=== PATIENT | female | born 1980 | race Caucasian/White ===

== ENCOUNTER → 2016-06-13 | Outpatient (REF) | payer OTHER ==
[~2016-06-13] MED LIST: FERR325T; IBUP600T; KEFL500C; VICO5TAB
== END ==
LOC: M LAB REF 09:10
PROVIDERS: ATTEND Physician Assistant
DX: J02.9 Acute pharyngitis, unspecified (principal)

== ENCOUNTER → 2016-10-11 | Outpatient (REF) | payer OTHER ==
[2016-10-11 16:46] LABS: ALBUMIN 4.1 GM/DL (3.2-5.2); ALBUMIN/GLOBULIN RATIO 1.21 (1.00-1.93); ALKALINE PHOSPHATASE 40 U/L (45-117); ALT/SGPT 32 U/L (12-78); ANION GAP 9 MEQ/L (8-16); AST/SGOT 19 U/L (15-37); BILIRUBIN,TOTAL 0.9 MG/DL (0.2-1.0); BLOOD UREA NITROGEN 12 MG/DL (7-18); CALCIUM LEVEL 9.2 MG/DL (8.5-10.1); CARBON DIOXIDE LEVEL 26 MEQ/L (21-32); CHLORIDE LEVEL 104 MEQ/L (98-107); CHOLESTEROL LEVEL 186 MG/DL (<200); CREATININE FOR GFR 0.93 MG/DL (0.55-1.02); FREE T4 1.22 NG/DL (0.76-1.46); GLOMERULAR FILTRATION RATE > 60.0 (>60); GLUCOSE, FASTING 84 MG/DL (70-105); POTASSIUM SERUM 4.5 MEQ/L (3.5-5.1); SODIUM LEVEL 139 MEQ/L (136-145); TOTAL PROTEIN 7.5 GM/DL (6.4-8.2); TRIGLYCERIDES LEVEL 122 MG/DL (<150)
[2016-10-11 17:12] LABS: BASO % 0.5 % (0.0-1.0); EOS # 0.1 K/mm3 (0.0-0.50); EOS % 1.4 % (0.0-3.0); LARGE UNSTAINED CELL # 0.1 K/mm3 (0.0-0.4); LYMPH # 1.5 K/mm3 (1.5-4.5); LYMPH % 17.3 % (24.0-44.0); MEAN CORPUSCULAR HEMOGLOBIN 31.7 pg (27.0-33.0); MEAN CORPUSCULAR HGB CONC 34.1 g/dl (32.0-36.5); MEAN CORPUSCULAR VOLUME 93.1 fl (80.0-96.0); MONO # 0.3 K/mm3 (0.0-0.8); MONO % 3.5 % (0.0-5.0); NEUTROPHILS # 6.1 K/mm3 (1.8-7.7); NEUTROPHILS % 76.4 % (36.0-66.0); PLATELET COUNT, AUTOMATED 215 k/mm3 (150-450); RED CELL DISTRIBUTION WIDTH 12.9 % (11.5-14.5); WHITE BLOOD COUNT 7.9 K/mm3 (4.0-10.0)
== END ==
LOC: M SFHCCLAY 09:20
PROVIDERS: ATTEND Family Medicine
DX: Z00.00 Encounter for general adult medical examination without abnormal findings (principal); M25.50 Pain in unspecified joint; E55.9 Vitamin D deficiency, unspecified

== ENCOUNTER → 2016-10-11 | Outpatient (CLI) | payer BC ==
--- NOTE | 2016-10-11 10:16 | REP ---
LEFT WRIST, TWO VIEWS: HISTORY: Pain. There is no acute fracture or dislocation. The joint spaces are normal in appearance. IMPRESSION: There is no acute fracture or dislocation.
== END ==
LOC: M CLY 09:43
PROVIDERS: ATTEND Family Medicine
DX: M25.532 Pain in left wrist (principal)

== ENCOUNTER 2017-08-22 15:22 | Emergency (ER) | payer BC, OTHER ==
[2017-08-22] MEDS: NS 1,000 ML IV (15:45)
[2017-08-22] MEDS: METOCLOPRAMIDE INJ 10MG/2ML VIAL (J2765) IV (15:45)
[2017-08-22 16:13] LABS: HEMATOCRIT 42.1 % (36.0-47.0); HEMOGLOBIN 14.9 g/dl (12.0-15.5); MEAN CORPUSCULAR HGB CONC 35.4 g/dl (32.0-36.5); MEAN CORPUSCULAR VOLUME 87.7 fl (80.0-96.0); PLATELET COUNT, AUTOMATED 201 10^3/uL (150-450); RED CELL DISTRIBUTION WIDTH 11.9 % (11.5-14.5); WHITE BLOOD COUNT 16.7 10^3/uL (4.0-10.0)
[2017-08-22 16:30] LABS: CONTROL LINE HCG INT CTR LINE PRESENT; HCG, SERUM QUALITATIVE NEGATIVE (NEGATIVE)
[2017-08-22 16:33] LABS: ANION GAP 6 MEQ/L (8-16); BLOOD UREA NITROGEN 12 MG/DL (7-18); CARBON DIOXIDE LEVEL 26 MEQ/L (21-32); CHLORIDE LEVEL 108 MEQ/L (98-107); CREATININE FOR GFR 0.65 MG/DL (0.55-1.30); GLOMERULAR FILTRATION RATE > 60.0 (>60); GLUCOSE, FASTING 95 MG/DL (70-100); POTASSIUM SERUM 3.5 MEQ/L (3.5-5.1); SODIUM LEVEL 140 MEQ/L (136-145)
== END 2017-08-22 18:29 | disposition home or self-care (01) ==
LOC: M ED 15:22
DX: R55 Syncope and collapse (principal); R11.2 Nausea with vomiting, unspecified; R19.7 Diarrhea, unspecified; Z88.1 Allergy status to other antibiotic agents; Z88.5 Allergy status to narcotic agent
CPT/HCPCS: J2765

== ENCOUNTER → 2017-12-13 | Outpatient (REF) | payer BC, OTHER ==
[2017-12-14 11:56] LABS: CONTROL LINE MONO INT CTR LINE PRESENT; MONO SCRN NEGATIVE (NEGATIVE)
== END ==
LOC: M LAB REF 20:28
DX: R53.83 Other fatigue (principal)
CPT/HCPCS: 86308

== ENCOUNTER → 2018-03-09 | Outpatient (CLI) | payer OTHER, BC ==
[2018-03-09 13:23] LABS: BASO % 0.4 % (0.0-1.0); EOS % 0.6 % (0.0-3.0); HEMATOCRIT 39.9 % (36.0-47.0); HEMOGLOBIN 13.4 g/dl (12.0-15.5); IMMATURE GRANULOCYTE % 0.3 % (0-3.0); LYMPH # 1.4 10^3/uL (1.5-4.5); LYMPH % 20.4 % (24.0-44.0); MEAN CORPUSCULAR HGB CONC 33.6 g/dl (32.0-36.5); MEAN CORPUSCULAR VOLUME 92.4 fl (80.0-96.0); MONO # 0.4 10^3/uL (0.0-0.8); MONO % 5.1 % (0.0-5.0); NEUTROPHILS % 73.2 % (36.0-66.0); PLATELET COUNT, AUTOMATED 191 10^3/uL (150-450); RED BLOOD COUNT 4.32 10^6/uL (4.00-5.40); RED CELL DISTRIBUTION WIDTH 12.6 % (11.5-14.5); WHITE BLOOD COUNT 6.8 10^3/uL (4.0-10.0)
[2018-03-09 13:56] LABS: HCG, SERUM QUANTITATIVE < 1.0 MIU/ML
== END ==
LOC: M WUC 10:20
DX: Z01.818 Encounter for other preprocedural examination (principal)
CPT/HCPCS: 84702

== ENCOUNTER → 2018-05-12 | Outpatient (CLI) | payer OTHER, BC ==
[~2018-05-12] MED LIST changes: +DULO1CAP PO; +REGL10TA6 PO; +ZOFR4TAB14 PO
[2018-05-15 14:15] LABS: EBV VIRAL CAPSID AG IgM <36.0 U/mL (0.0-35.9)
== END ==
LOC: M WUC 11:37
PROVIDERS: ATTEND Physician Assistant
DX: J02.9 Acute pharyngitis, unspecified (principal)

== ENCOUNTER → 2018-11-06 | Outpatient (REF) | payer OTHER ==
[~2018-11-06] MED LIST changes: -DULO1CAP PO; +DULO1CAP4 PO
== END ==
LOC: M LAB REF 12:58
PROVIDERS: ATTEND Family Medicine
DX: R10.2 Pelvic and perineal pain (principal); R53.83 Other fatigue; R30.0 Dysuria

== ENCOUNTER → 2019-09-19 | Outpatient (CLI) | payer OTHER ==
--- NOTE | 2019-09-19 12:38 | REP ---
BILATERAL MAMMOGRAM WITH 3D TOMOSYNTHESIS AND BILATERAL BREAST ULTRASOUND: HISTORY: Bilateral breast tenderness and axillary swelling for 6 months. Focal palpable lump inferior left breast. The lump is marked on the skin. There is a family history of breast cancer in maternal grandmother at age 72. [facility] lifetime risk of breast cancer 13.6%. Baseline mammogram with no comparison studies. ML and CC view of the both breasts performed. Implant displaced views are performed with 3D tomosynthesis. Bilateral breast implants appears grossly intact. There is moderate fibroglandular tissue bilaterally. No mass or architectural distortion is seen and there are no suspicious clusters of microcalcifications. Real-time sonographic evaluation of the left breast is performed at the site of the palpable lump inferiorly. There is a 4 mm cyst at that location, which appears benign. Real-time sonographic evaluation of the bilateral axillary region is performed in the region of the swelling. There are 4 cm subcentimeter lymph nodes in the left axilla and two subcentimeter lymph nodes in the right axilla, normal in size based on short axis dimension. All demonstrate normal appearing morphology with fatty afia. IMPRESSION: BIRADS 2: BI-RADS/ACR category 2 mammogram. Benign Findings. ACR 2 benign. Bilateral breast implants appear intact. No mass or clustered microcalcifications are seen bilaterally. At the site of the palpable lump inferiorly in the left breast is a 4 mm cyst. In the axillary regions there are normal size and normal appearing lymph nodes as discussed above. Followup mammogram is recommended in 1 year. This mammogram was interpreted with the aid of an FDA-approved computer-aided detection system. A. Negative x-ray reports should not delay biopsy if a dominant or clinically suspicious mass is present. B. Four to eight percent of cancers are not identified by x-ray. C. Adenosis and dense breasts may obscure an underlying neoplasm. The patient states she/he had a clinical breast exam in April 2019. The patient letter being requested is M2
== END ==
LOC: M WHC 10:02
PROVIDERS: ATTEND Family Medicine
DX: N64.4 Mastodynia (principal); Z80.3 Family history of malignant neoplasm of breast; N60.02 Solitary cyst of left breast
CPT/HCPCS: 76641; 76882; 77066; G0279

== ENCOUNTER → 2020-04-21 | Outpatient (CLI) | payer SELFPAY | LOC: M LABSMTC 13:06 | PROVIDERS: ATTEND Pediatrics | DX: Z20.822 Contact with and (suspected) exposure to COVID-19 (principal) ==

== ENCOUNTER → 2020-04-29 | Outpatient (CLI) | payer OTHER ==
--- NOTE | 2020-04-29 13:39 | REP ---
INDICATION: LT THYROID NODULE. COMPARISON: None. TECHNIQUE: High-resolution bilateral thyroid sonography. FINDINGS: Thyroid isthmus is 0.2 cm in thickness. Right lobe dimensions are 4.8 x 1.5 x 1.3 cm. The left lobe measures 5.4 x 1.2 x 1.2 cm. The right lobe is homogeneous. No isthmic nodule is seen. There is a hypoechoic nodule in the lower pole posterior aspect left lobe of the thyroid measuring 2.2 x 0.9 x 1.0 cm. This has well-circumscribed margin and no discernible microcalcifications. It is solid nodule. IMPRESSION: Solitary solid nodule 2.2 cm in greatest diameter in the lower pole the left lobe of the thyroid. Consider ultrasound-guided FNA biopsy. <Electronically signed by Palomo Myers > 04/29/20 1910
== END ==
LOC: M RAD 09:02
PROVIDERS: ATTEND Family Medicine
DX: E04.1 Nontoxic single thyroid nodule (principal)

== ENCOUNTER → 2020-05-12 | Outpatient (REF) | payer OTHER | LOC: M LAB REF 17:10 | PROVIDERS: ATTEND Internal Medicine Endocrinology, Diabetes & Metabolism | DX: E04.1 Nontoxic single thyroid nodule (principal) ==

== ENCOUNTER → 2021-02-17 | Outpatient (REF) | payer OTHER | LOC: M LAB REF 12:24 | PROVIDERS: ATTEND Family Medicine | DX: R53.83 Other fatigue (principal); D50.9 Iron deficiency anemia, unspecified ==

== ENCOUNTER 2022-10-27 13:45 | Inpatient (IN) | payer OTHER ==
[~2022-10-27] VITALS: Ht 162.6 cm; Wt 50.4 kg
[2022-10-27] MEDS ORDERED: BACT800T5 PO (14:04)
[2022-10-27] MEDS ORDERED: DULO1CAP5 PO (14:04)
[2022-10-27] MEDS ORDERED: GABA-284 PO (14:04)
[2022-10-27] MEDS ORDERED: ESTR1PAT TD (14:04)
[2022-10-27] MEDS ORDERED: IBUP200T46 PO (14:04)
[2022-10-27 14:48] LABS: HEMATOCRIT 34.1 % (36.0-47.0); HEMOGLOBIN 11.7 g/dl (12.0-15.5); MEAN CORPUSCULAR HEMOGLOBIN 31.5 pg (27.0-33.0); MEAN CORPUSCULAR HGB CONC 34.3 g/dl (32.0-36.5); MEAN CORPUSCULAR VOLUME 91.7 fl (80.0-96.0); PLATELET COUNT, AUTOMATED 186 10^3/uL (150-450); RED BLOOD COUNT 3.72 10^6/uL (4.00-5.40); WHITE BLOOD COUNT 25.4 10^3/uL (4.0-10.0)
[2022-10-27 15:12] LABS: ALBUMIN 2.9 G/DL (3.2-5.2); ALKALINE PHOSPHATASE 67 U/L (46-116); ALT/SGPT 34 U/L (7.0-40); AST/SGOT 20 U/L (<34); BILIRUBIN,DIRECT 0.2 MG/DL (<0.4); BILIRUBIN,TOTAL 0.3 MG/DL (0.3-1.2); BLOOD UREA NITROGEN 18 MG/DL (9-23); CALCIUM LEVEL 8.1 MG/DL (8.5-10.1); CARBON DIOXIDE LEVEL 24 MMOL/L (20-31); CHLORIDE LEVEL 101 MMOL/L (98-107); CK-MB VALUE MASS < 1.0 NG/ML (<3.6); CPK CREATINE PHOSPHOKINASE 23 U/L (34-145); CREATININE FOR GFR 0.83 MG/DL (0.55-1.30); GLOMERULAR FILTRATION RATE > 60.0 (>58); GLUCOSE, FASTING 109 MG/DL (60-100); MB/CK RELATIVE INDEX 4.34 (< OR =4); POTASSIUM SERUM 3.5 MMOL/L (3.5-5.1); SODIUM LEVEL 136 MMOL/L (136-145); TOTAL PROTEIN 5.6 G/DL (5.7-8.2)
[2022-10-27 15:14] LABS: LIPASE 19 U/L (12-53)
[2022-10-27 15:28] LABS: HCG, SERUM QUALITATIVE NEGATIVE (NEGATIVE)
[2022-10-27 15:33] LABS: LYMPHOCYTES 3 % (16-44); MONOCYTES 3 % (0-5); NEUTROPHILS 79 % (28-66); PLATELET ESTIMATE NORMAL (NORMAL)
[2022-10-27] MEDS ORDERED: cefTRIAXone SOD 2 GM in D5W MINI-BAG PLUS 50 ML IV ONE (15:45)
[2022-10-27] MEDS ORDERED: NS 1,660 ML in IV 1 EA IV ONE (15:45)
[2022-10-27] MEDS ORDERED: ACETAMINOPHEN 1000MG 100ML IV BAG IV ONE (16:40)
[2022-10-27] MEDS ORDERED: ONDANSETRON 4MG 2ML VIAL IV ONE (16:40)
[2022-10-27] MEDS ORDERED: diphenhydrAMINE 50MG/ML VIAL IV ONE (16:40)
[2022-10-27] MEDS ORDERED: ACET650T15 PO (16:53)
[2022-10-27] MEDS ORDERED: VALA500T5 PO (16:53)
[2022-10-27] MEDS ORDERED: MED REC IN PROGRESS XX SCH (16:55)
[2022-10-27] MEDS ORDERED: HOME MED LIST COMPLETE! XX SCH (17:05)
[2022-10-27] MEDS ORDERED: valACYclovir HCL 500 MG TAB PO PRN (17:35)
[2022-10-27] MEDS ORDERED: ONDANSETRON 4MG 2ML VIAL IV PRN (17:35)
[2022-10-27] MEDS: ACETAMINOPHEN 650MG ER TAB (TYLENOL ARTHRITIS) PO PRN (20:21)
[2022-10-27] MEDS: LR 1,000 ML IV SCH ×2 (20:24→21:55)
[2022-10-27 21:33] VITALS: BP 92/52; TEMP 98.2; O2SAT 98
[2022-10-27] MEDS: GABAPENTIN 400MG CAP PO SCH (21:54)
[2022-10-27] MEDS: DULoxetine 30MG CAPSULE (CYMBALTA) PO SCH (21:54)
[2022-10-28 02:00] VITALS: BP 94/62; TEMP 97.5; O2SAT 99
[2022-10-28] MEDS: ACETAMINOPHEN 650MG ER TAB (TYLENOL ARTHRITIS) PO PRN ×3 (05:28→20:33)
[2022-10-28 06:11] LABS: HEMATOCRIT 32.2 % (36.0-47.0); HEMOGLOBIN 10.7 g/dl (12.0-15.5); MEAN CORPUSCULAR HEMOGLOBIN 30.7 pg (27.0-33.0); MEAN CORPUSCULAR HGB CONC 33.2 g/dl (32.0-36.5); MEAN CORPUSCULAR VOLUME 92.5 fl (80.0-96.0); PLATELET COUNT, AUTOMATED 186 10^3/uL (150-450); RED BLOOD COUNT 3.48 10^6/uL (4.00-5.40); WHITE BLOOD COUNT 18.5 10^3/uL (4.0-10.0)
[2022-10-28 06:34] LABS: BLOOD UREA NITROGEN 15 MG/DL (9-23); CALCIUM LEVEL 7.7 MG/DL (8.5-10.1); CARBON DIOXIDE LEVEL 23 MMOL/L (20-31); CHLORIDE LEVEL 107 MMOL/L (98-107); CREATININE FOR GFR 0.79 MG/DL (0.55-1.30); GLOMERULAR FILTRATION RATE > 60.0 (>58); GLUCOSE, FASTING 95 MG/DL (60-100); POTASSIUM SERUM 3.5 MMOL/L (3.5-5.1); SODIUM LEVEL 140 MMOL/L (136-145)
[2022-10-28 06:38] LABS: PROCALCITONIN 10.08 ng/ml
[2022-10-28 07:23] VITALS: BP 96/59; TEMP 98.1; O2SAT 98
[2022-10-28] MEDS: GABAPENTIN 400MG CAP PO SCH ×2 (10:44→20:33)
[2022-10-28] MEDS: ENOXAPARIN 40MG/0.4ML SYRINGE (J1650 PER 10MG) SC SCH (10:45)
[2022-10-28] MEDS: LIDOCAINE 5% (LIDODERM) PATCH TD SCH (10:45)
[2022-10-28 12:49] VITALS: BP 105/60
[2022-10-28] MEDS: KETOROLAC 30 MG/ML 1ML VIAL IV PRN (13:44)
[2022-10-28 14:00] VITALS: BP 96/50; TEMP 98; O2SAT 100
[2022-10-28] MEDS ORDERED: cefTRIAXone SOD 1 GM in D5W MINI-BAG PLUS 50 ML IV SCH (16:00)
[2022-10-28 20:12] VITALS: BP 100/59; TEMP 98.6; O2SAT 99
[2022-10-28] MEDS: DULoxetine 30MG CAPSULE (CYMBALTA) PO SCH (20:33)
[2022-10-29] MEDS: ACETAMINOPHEN 650MG ER TAB (TYLENOL ARTHRITIS) PO PRN ×2 (02:33→08:00)
[2022-10-29 06:28] VITALS: BP 102/68; TEMP 98.2; O2SAT 98
[2022-10-29 07:04] LABS: BASO % 0.3 % (0.0-1.0); EOS # 0.1 10^3/uL (0.0-0.5); EOS % 0.7 % (0.0-3.0); HEMATOCRIT 32.5 % (36.0-47.0); LYMPH # 0.9 10^3/uL (1.5-5.0); LYMPH % 7.2 % (24.0-44.0); MEAN CORPUSCULAR HEMOGLOBIN 31.2 pg (27.0-33.0); MEAN CORPUSCULAR HGB CONC 33.8 g/dl (32.0-36.5); MEAN CORPUSCULAR VOLUME 92.1 fl (80.0-96.0); MONO # 0.8 10^3/uL (0.0-0.8); MONO % 6.2 % (2.0-8.0); NEUTROPHILS # 10.4 10^3/uL (1.5-8.5); NEUTROPHILS % 84.6 % (36.0-66.0); PLATELET COUNT, AUTOMATED 225 10^3/uL (150-450); RED BLOOD COUNT 3.53 10^6/uL (4.00-5.40); WHITE BLOOD COUNT 12.3 10^3/uL (4.0-10.0)
[2022-10-29] MEDS: GABAPENTIN 400MG CAP PO SCH (08:00)
[2022-10-29] MEDS: ENOXAPARIN 40MG/0.4ML SYRINGE (J1650 PER 10MG) SC SCH (08:01)
[2022-10-29] MEDS: LIDOCAINE 5% (LIDODERM) PATCH TD SCH (08:01)
[2022-10-29] MEDS ORDERED: ISOVUE-370 76% 100ML VIAL As Ordered ONE (08:51)
[2022-10-29] MEDS: KETOROLAC 30 MG/ML 1ML VIAL IV PRN (13:21)
[2022-10-29 14:00] VITALS: BP 100/55; TEMP 97.2; O2SAT 100
[2022-10-29] MEDS ORDERED: PROBCAP14 PO (14:47)
[2022-10-29] MEDS ORDERED: ONDA-83 PO (14:47)
[2022-10-29] MEDS ORDERED: LEVO1TAB40 PO (14:47)
[2022-10-30] MEDS ORDERED: PROM25SU3 PR (14:05)
[2022-10-30] MEDS ORDERED: ONDA4TAB6 PO (14:05)
== END 2022-10-29 15:45 | disposition home or self-care (01) | DRG 720 ==
LOC: M ED 13:45 → M ED INP 17:11 → ENRESERV 20:30 → M MSPAV 21:29
PROVIDERS: ADMIT Internal Medicine; ATTEND Internal Medicine
DX: A41.9 Sepsis, unspecified organism (principal); N10 Acute pyelonephritis; M79.7 Fibromyalgia; A60.09 Herpesviral infection of other urogenital tract; R65.20 Severe sepsis without septic shock

== ENCOUNTER 2022-10-30 09:16 | Emergency (ER) | payer OTHER ==
[~2022-10-30] VITALS: Ht 162.6 cm; Wt 56.4 kg
[~2022-10-30 09:16] MED LIST changes: +ACET650T15 PO; +BACT800T5 PO; +DULO1CAP5 PO; +ESTR1PAT TD; +GABA-284 PO; +IBUP200T46 PO; +LEVO1TAB40 PO; +ONDA-83 PO; +PROBCAP14 PO; +VALA500T5 PO
[2022-10-30 09:28] VITALS: TEMP 97.8
[2022-10-30] MEDS ORDERED: NS 1,000 ML IV ONE (09:50)
[2022-10-30] MEDS ORDERED: ONDANSETRON 4MG 2ML VIAL IV ONE (09:50)
[2022-10-30 10:45] LABS: BASO # 0.1 10^3/uL (0.0-0.2); BASO % 0.5 % (0.0-1.0); EOS % 0.4 % (0.0-3.0); LYMPH # 0.9 10^3/uL (1.5-5.0); LYMPH % 8.5 % (24.0-44.0); MEAN CORPUSCULAR HEMOGLOBIN 31.2 pg (27.0-33.0); MEAN CORPUSCULAR HGB CONC 34.4 g/dl (32.0-36.5); MEAN CORPUSCULAR VOLUME 90.7 fl (80.0-96.0); MONO # 0.8 10^3/uL (0.0-0.8); MONO % 7.2 % (2.0-8.0); NEUTROPHILS # 8.8 10^3/uL (1.5-8.5); NEUTROPHILS % 81.5 % (36.0-66.0); PLATELET COUNT, AUTOMATED 249 10^3/uL (150-450); RED BLOOD COUNT 3.53 10^6/uL (4.00-5.40); WHITE BLOOD COUNT 10.8 10^3/uL (4.0-10.0)
[2022-10-30] MEDS ORDERED: cefTRIAXone SOD 1 GM in D5W MINI-BAG PLUS 50 ML IV ONE (11:00)
[2022-10-30 12:00] VITALS: BP 108/63
[2022-10-30] MEDS ORDERED: KETOROLAC 30 MG/ML 1ML VIAL IV ONE (12:20)
[2022-10-30] MEDS ORDERED: ISOVUE-370 76% 100ML VIAL As Ordered ONE (12:27)
[2022-10-30 13:15] VITALS: O2SAT 100
[2022-10-30] MEDS ORDERED: PROMETHAZINE 25MG/ML 1ML VIAL IV ONE (13:20)
[2022-10-30] MEDS ORDERED: ONDA4TAB6 PO (14:05)
[2022-10-30] MEDS ORDERED: PROM25SU3 PR (14:05)
== END 2022-10-30 14:25 | disposition home or self-care (01) ==
LOC: M ED 09:16 → EDBD 09:16 → M ED 14:25
DX: R11.10 Vomiting, unspecified (principal); R10.9 Unspecified abdominal pain; M79.7 Fibromyalgia; Z88.5 Allergy status to narcotic agent; Z88.1 Allergy status to other antibiotic agents; Z79.899 Other long term (current) drug therapy
CPT/HCPCS: 36415; 74021; 74177; 80047; 83605; 85025; 96365; 96375; 99284; J0696; J1885; J2405; J2550; Q9967

== ENCOUNTER → 2022-11-04 | Outpatient (REF) | payer OTHER ==
[~2022-11-04] MED LIST changes: +ONDA4TAB6 PO; +PROM25SU3 PR
== END ==
LOC: M LAB REF 16:19
PROVIDERS: ATTEND Family Medicine
DX: N10 Acute pyelonephritis (principal); A41.89 Other specified sepsis

== ENCOUNTER → 2022-11-11 | Outpatient (REF) | payer OTHER | LOC: M LAB REF 16:05 | PROVIDERS: ATTEND Family Medicine | DX: M79.7 Fibromyalgia (principal) ==

== ENCOUNTER → 2022-12-29 | Outpatient (CLI) | payer OTHER ==
[2022-12-29 18:19] LABS: APPEARANCE, URINE CLEAR (CLEAR); BACTERIA, URINE AUTO NEGATIVE (NEGATIVE); BILIRUBIN, URINE AUTO NEGATIVE (NEGATIVE); BLOOD, URINE BLOOD NEGATIVE (NEGATIVE); COLOR, URINE STRAW (YELLOW); GLUCOSE, URINE (UA) AUTO NEGATIVE (NEGATIVE); KETONE, URINE AUTO NEGATIVE (NEGATIVE); LEUKOCYTE ESTERASE, URINE AUTO TRACE (NEGATIVE); NITRITE, URINE AUTO NEGATIVE (NEGATIVE); PROTEIN, URINE AUTO NEGATIVE (NEGATIVE); RBC, URINE AUTO 1 /HPF (0-3); SPECIFIC GRAVITY URINE AUTO 1.008 (1.002-1.035); SQUAMOUS EPITHELIAL CELL UR AU 3 /HPF (0-6); UROBILINOGEN, URINE AUTO 0.2 mg/dL (0.0-2.0); WBC, URINE AUTO 1 /HPF (0-3)
== END ==
LOC: M WUC 13:41
PROVIDERS: ATTEND Family Medicine
DX: R10.9 Unspecified abdominal pain (principal)

== ENCOUNTER → 2023-01-17 | Outpatient (CLI) | payer OTHER ==
[~2023-01-17] MED LIST changes: +GASTROGRAFIN SOLUTION 30ML ONE; +ISOVUE-370 76% 100ML VIAL ONE
== END ==
LOC: M PLAIMG 09:32
PROVIDERS: ATTEND Physician Assistant
DX: N28.89 Other specified disorders of kidney and ureter (principal)

== ENCOUNTER → 2023-05-08 | Outpatient (REF) | payer OTHER ==
[~2023-05-08] MED LIST changes: -GASTROGRAFIN SOLUTION 30ML ONE; -ISOVUE-370 76% 100ML VIAL ONE
[2023-05-08 17:11] LABS: APPEARANCE, URINE HAZY (CLEAR); BACTERIA, URINE AUTO NEGATIVE (NEGATIVE); BILIRUBIN, URINE AUTO NEGATIVE (NEGATIVE); BLOOD, URINE BLOOD NEGATIVE (NEGATIVE); COLOR, URINE YELLOW (YELLOW); GLUCOSE, URINE (UA) AUTO NEGATIVE (NEGATIVE); KETONE, URINE AUTO NEGATIVE (NEGATIVE); LEUKOCYTE ESTERASE, URINE AUTO 1+ (NEGATIVE); MUCUS, URINE SMALL (NEGATIVE); NITRITE, URINE AUTO NEGATIVE (NEGATIVE); PROTEIN, URINE AUTO NEGATIVE (NEGATIVE); RBC, URINE AUTO 6 /HPF (0-3); SPECIFIC GRAVITY URINE AUTO 1.016 (1.002-1.035); SQUAMOUS EPITHELIAL CELL UR AU 8 /HPF (0-6); WBC, URINE AUTO 60 /HPF (0-3)
== END ==
LOC: M LAB REF 16:29
PROVIDERS: ATTEND Family Medicine
DX: R30.0 Dysuria (principal)

== ENCOUNTER 2024-11-15 06:48 | Day surgery (SDC) | payer OTHER ==
[~2024-11-15] VITALS: Ht 157.5 cm; Wt 62.8 kg
[~2024-11-15 06:48] MED LIST changes: +ACET-1515 PO; -ACET650T15 PO; +ONDA-282 PO; -ONDA4TAB6 PO; +PREG150C2
[2024-11-15] MEDS ORDERED: LIDOCAINE 2% 100 MG/5 ML SDV (FOR ANES.) As Ordered ONE (07:40)
[2024-11-15 08:24] VITALS: TEMP 97.1
[2024-11-15 08:41] VITALS: BP 110/60; O2SAT 100
== END 2024-11-15 08:44 | disposition home or self-care (01) ==
LOC: M OPP 06:48
PROVIDERS: ATTEND Surgery
DX: Z12.11 Encounter for screening for malignant neoplasm of colon (principal); D12.5 Benign neoplasm of sigmoid colon; K57.30 Diverticulosis of large intestine without perforation or abscess without bleeding; Z88.1 Allergy status to other antibiotic agents; Z79.899 Other long term (current) drug therapy; F17.290 Nicotine dependence, other tobacco product, uncomplicated